=== PATIENT | male | born 1950 | race Caucasian/White ===

== ENCOUNTER 2016-06-23 14:59 | Emergency (ER) | payer MEDICARE, MEDICAID ==
[~2016-06-23] VITALS: Ht 170.2 cm; Wt 63.6 kg
[~2016-06-23 14:59] MED LIST: ASPI-628 PO; LIP40 PO; MULT-56 PO
[2016-06-23 15:03] VITALS: BP 136/67; PULSE 66; RESP 14; O2SAT 99
--- NOTE | 2016-06-23 17:12 | ED.REPORT ---
HPI-Facial Injury Date of Service Jun 23, 2016 ED Provider: Bakari Lozoya History of Present Illness: 66yo male with Parkinson's, stumbled while transferring and whacked L eyebrow on chair just prior to arrival. He sustained a 3.5cm lac to lateral L eyebrow. No LOC, vision change, or neck pain. Nursing Notes Stated Complaint: FELL WHILE TRANSFERING Chief Complaint: Multiple Trauma/Fall Nursing Notes Reviewed: Yes Allergies: Coded Allergies: No Known Allergies (Verified Allergy, Unknown, 06/23/16) Scheduled Aspirin (Aspir 81) 81 Mg Tablet.dr 81 MG PO DAILY Atorvastatin (Lipitor) 40 Mg Tablet 40 MG PO DAILY Miscellaneous Medications Multivitamin (Daily Vitamin) 1 Each Tablet 1 EACH PO General Time Seen by Provider: 16:00 Transferred From: skilled nursing Chief Complaint Laceration Hx Obtained From: Patient Arrived By: Ambulance Onset Occurred: Just prior to arrival Symptom Duration: Since onset Caused by: Fall Location: : Lid left Radiation: Does not radiate Severity: Current: No pain currently Severity: Maximum: No pain Associated with: Denies: Headache, Loss of consciousness, Neck pain, Vision change Pertinent Negative: Pt denies other symptoms Immunizations: Tetanus up to date Similar Sx Previous: No Risk Factors IC Bleed Risk Stratification RF Statements: Risk factors reviewed Nexus C-Spine Criteria No post midline tendernes, Not intoxicated, Normal level or alertness, No focal neuro deficits, No distracting injuries Bleeding Risk Stratification RF Statements: Risk factors reviewed Past Medical History Past Medical History Parkinson's Disease Reports: Diabetes mellitus, Hypertension, Stroke Smoking History Former Smoker Social History Alcohol Use: Denies alcohol use Drug Use: Denies drug use Other Social History: Lives alone Ambulatory Status Independent Review of Systems Constitutional: Denies: Chills, Fever Eyes: Denies: Blurred bilateral Musculoskeletal: Denies: Neck pain Neurologic: Denies: Change LOC, Confusion, Dizziness, Vision change, Weakness Complete sys rev & neg: except as marked. Physical Exam Initial Vital Signs Vital Signs (First) Date Time Temp Pulse Resp B/P Pulse Ox O2 Delivery O2 Flow Rate FiO2 06/23/16 15:03 36.4 66 14 136/67 99 06/23/16 17:38 Room Air Initial VS: Vital signs normal Head / Eyes: PERRL, EOMI 3;.5cm L lateral eyebrow lac. Neck: Supple, Full range of motion, No adenopathy Neurologic: Oriented X3, No sensory deficits Mental Status: Negative: Confused Speech: Positive: Expressive aphasia (at baseline) General/Constitutional: Awake, Alert, No acute distress, Not toxic appearing Cardiovascular: Heart rate NL, Regular rhythm, Heart sounds NL Abdomen: Soft, Non-tender Interpretation & Diagnostics Lab Results Interpretation Test 06/23/16 15:32 Hold Urine Received (Received) Procedures Laceration Management Time: 17:12 Consent / Setup / Site Prep: Consent from patient Location of Wound: L eyebrow Wound Length: 3 cm (.5) Local Anesthesia: Lidocaine 1% Wound Preparation: Betadine Debridement: None Irrigation: 50 cc Repair Skin: ___ O (4), Nylon # Sutures - Skin: 4 Suture Technique: Simple Post-Procedure / Complications: Antibiotic oint applied, Dressing applied, No complications, Condition improved, Tolerated procedure well, Patient stable Re-Eval/Medical Decision Med Decision/Clinical Course Med Decision/Clinical Course: Straightforward L eyebrow lac repair after glf while transferring. No clinical suspicion of head bleed or neck imnjury. Pt. reviewed with Dr. Frazier who concurs that head/neck CT not clinically indicated at present. Counseled Regarding: Diagnosis, Need for follow-up, When/why to return to ED Discharge & Departure Impression: Primary Impression: Laceration of eyebrow Encounter type: initial encounter Laterality: left Qualified Code: S01.112A - Laceration without foreign body of left eyelid and periocular area, initial encounter Additional Impression: Parkinson disease Disposition: Home Patient Instructions: Acute Wound Care (ED) Additional Instructions: Use soap and water once daily. Apply bacitracin twice daily. Sutures out 06/30. Return to ER if any problems. Referrals: Wilber Baker DO (PCP) 1 Week suture removal EDSupervising Provider for APC: Roxanna Frazier MD Attending Statement Patient seen and examined with Mr. Lozoya Laceration to the left side of the brow. Sutured without complication Discussion with the patient: without loss of consciousness, no blood thinners, no headache, no interest in any surgical interventions if he were to have an intracranial bleed, together we opted to not order a CT scan of the head. copies to: Wilber Baker Christopher R PAC Jun 23, 2016 17:12 Roxanna Frazier MD Jun 23, 2016 17:36
[2016-06-23 17:38] VITALS: BP 125/68; PULSE 68; O2SAT 98
[2016-06-23 18:05] VITALS: BP 125/68; PULSE 68; O2SAT 98
== END 2016-06-23 18:07 | disposition home or self-care (01) ==
LOC: EDUNIT# 14:59 → EDBD 14:59 → SED 14:59
DX: S01.112A Laceration without foreign body of left eyelid and periocular area, initial encounter (principal); W04.XXXA Fall while being carried or supported by other persons, initial encounter; Y93.89 Activity, other specified; Y92.89 Other specified places as the place of occurrence of the external cause; Y99.8 Other external cause status; G20 Parkinson's disease; I10 Essential (primary) hypertension; E11.9 Type 2 diabetes mellitus without complications; Z86.73 Personal history of transient ischemic attack (TIA), and cerebral infarction without residual deficits; Z79.82 Long term (current) use of aspirin; Z87.891 Personal history of nicotine dependence

== ENCOUNTER 2016-07-30 22:08 | Emergency (ER) | payer MEDICARE, MEDICAID ==
[2016-07-30 22:24] VITALS: BP 141/89; PULSE 73; RESP 16; O2SAT 97
--- NOTE | 2016-07-30 23:26 | ED.REPORT ---
HPI-Trauma Minor / Fall Date of Service July 30, 2016 ED Provider: Michelet Ybarra MD Pt is a 66 year old male with a hx of Parkinson's, DM and HTN presenting to the ED complaining of nose pain after falling out of bed just prior to arrival. The fall was unwitnessed and he denies any LOC. Denies any neck pain, nausea, vomiting, or any other symptoms at this time. Nursing Notes Stated Complaint: FALL FROM BED Chief Complaint: Head, Face, Neck Trauma Nursing Notes Reviewed: Yes Allergies: Coded Allergies: No Known Allergies (Verified Allergy, Unknown, 07/30/16) Scheduled Aspirin (Aspir 81) 81 Mg Tablet.dr 81 MG PO DAILY Atorvastatin (Lipitor) 40 Mg Tablet 40 MG PO DAILY Miscellaneous Medications Multivitamin (Daily Vitamin) 1 Each Tablet 1 EACH PO General Time Seen by MD: 23:25 Chief Complaint Fall, Face injury Hx Obtained From: Patient, EMS Arrived By: Ambulance Onset Occurred: Just prior to arrival Symptom Duration: Since onset Location: Nose Quality: Painful Severity: Current: Mild Severity: Maximum: Mild Recent Healthcare: No recent doctor visit, No recent hospitalization Similar Sx Previous: No Past Medical History Past Medical History Notes: Pt is DNAR, comfort measures only. Past Medical History Parkinson's Disease Reports: Diabetes mellitus, Hypertension, Stroke Smoking History Former Smoker Social History Alcohol Use: Denies alcohol use Drug Use: Denies drug use Other Social History: Lives alone Ambulatory Status Independent Review of Systems Review of Systems Note: Nose pain Musculoskeletal: Denies: Neck pain Neurologic: Denies: Change LOC Complete sys rev & neg: except as marked. GI: Denies: Nausea, Vomiting Physical Exam Initial Vital Signs Vital Signs (First) Date Time Temp Pulse Resp B/P Pulse Ox O2 Delivery O2 Flow Rate FiO2 07/30/16 22:24 36.8 73 16 141/89 97 Room Air Initial VS: Reviewed, Vital signs normal ENT: Mucous membranes moist, Conjunctiva normal, No scleral icterus Respiratory: Breath sounds normal, Clear to auscultation, No respiratory distress Cardiovascular: Regular rate & rhythm, Heart sounds normal, Intact distal pulses Extremities: Vascular intact, Neuro intact, No swelling, No tenderness Skin: Warm, Dry, No cyanosis Neurologic: Alert, Oriented, Nonfocal Psychiatric: Mood/affect normal, Behavior normal, Normal thought content General/Constitutional: Awake, Alert No evidence of trauma on exam. Pt is able to answer questions. Tremulous, consistent with Parkinson's. Neck: Atraumatic, Supple, Non-tender Head / Eyes: Normocephalic, PERRL, EOMI Some excoriations unrelated to the injury on his forehead and scalp. Erythema on the tip of his nose. No bony deformity or tenderness of nose. Face atraumatic. Re-Eval/Medical Decision Med Decision/Clinical Course 58-year-old male with minor trauma to his nose from sliding out of bed. No evidence on physical examination of more serious trauma and no indications for x -rays. Re-Evaluation/Progress : Time of Eval: 23:58 Patient Status: Condition improved Re-Evaluation/Progress Note: Discussed plan for discharge. Pt understands and agrees with plan. Counseled Regarding: Diagnosis, Lab results, Need for follow-up, When/why to return to ED Discharge & Departure Impression: Primary Impression: Nasal trauma Encounter type: initial encounter Qualified Code: S09.92XA - Unspecified injury of nose, initial encounter Disposition: Home Discharge Condition All VS Reviewed: Yes Patient Instructions: Fall Prevention for Older Adults (ED) Additional Instructions: There is no evidence of significant trauma. X-rays are not indicated. Urine is normal. Referrals: Wilber Baker DO (PCP) Scribe Attestation Portions of this note were transcribed by Altagracia Bond. I, Dr. Ybarra personally performed the history, physical exam and medical decision-making; I reviewed and confirmed the accuracy of the information in the transcribed note. Signed by: Maddi Pearl, 07/31/2016 at 0016. copies to: Wilber Baker Howard L MD July 30, 2016 23:26 ALTAGRACIA BOND July 30, 2016 23:33
[2016-07-31 01:09] VITALS: BP 160/90; PULSE 71; RESP 16; O2SAT 97
== END 2016-07-31 00:44 | disposition home or self-care (01) ==
LOC: EDBD 22:08 → EDUNIT# 22:08 → SED 22:08
DX: S09.92XA Unspecified injury of nose, initial encounter (principal); W06.XXXA Fall from bed, initial encounter; Y93.9 Activity, unspecified; Y92.122 Bedroom in nursing home as the place of occurrence of the external cause; Y99.8 Other external cause status; G20 Parkinson's disease; E11.9 Type 2 diabetes mellitus without complications; I10 Essential (primary) hypertension; Z79.82 Long term (current) use of aspirin; Z87.891 Personal history of nicotine dependence; Z86.73 Personal history of transient ischemic attack (TIA), and cerebral infarction without residual deficits; Z66 Do not resuscitate